=== PATIENT | male | born 1960 | race Caucasian/White ===

== ENCOUNTER 2017-11-28 09:08 | Day surgery (SDC) | payer BC ==
[~2017-11-28 09:08] MED LIST: Lactated Ringers 1,000 ML IV SCH; Lidocaine 1%/Sod Bicarbonate in NS 8.4% 1 ML Syringe IDERM PRN; Sodium Chloride 0.9% 10 ML Syringe FLUSH PRN
--- NOTE | 2017-11-28 09:09 | PCM.PREANE ---
Preanesthetic Assessment - Anesthesia/Transfusion/Family Hx Anesthesia History: Prior Anesthesia Without Reaction Family History of Anesthesia Reaction: No Transfusion History: No Prior Transfusion(s) Intubation History: Unknown - Review of Systems General: No Symptoms (History of ADHD) Pulmonary: No Symptoms (Current day smoker: 0.25 packs/day times 40 years/[facility] with CPAP with sleep.), Cough (just getting over a cold one week ago, with symptoms resolving) Cardiovascular: No Symptoms (Eluting stent placed 03/30/16/ Patient had an appt with drier take off tender in 2016, with unremarkable findings noted per patient.) Gastrointestinal: No Symptoms Neurological: No Symptoms (Obesity) Other: Reports: None, Diabetes (Diet controlled/Patient instructed to take metformin but refuses/AM blood vamtl=007 @ 0950) - Physical Assessment NPO Status Date: 11/27/17 NPO Status Time: 23:00 Pulse: 70 O2 Sat by Pulse Oximetry: 98 Respiratory Rate: 16 Blood Pressure: 160/87 Temperature: 36.6 C Height: 1.7 m Weight: 135 kg ASA Class: 3 Mental Status: Alert & Oriented x3 Airway Class: Mallampati = 3 Dentition: Reports: Normal Dentition, Caries Thyro-Mental Finger Breadths: 3 Mouth Opening Finger Breadths: 3 ROM/Head Extension: Full Lungs: Clear to Auscultation, Normal Respiratory Effort Cardiovascular: Regular Rate, Regular Rhythm, No Murmurs - Lab Values: All lab values reviewed and noted and within acceptable ranges to proceed with scheduled procedure. - Imaging/EKG Impressions: EKG: SR rate= 69, Inferior infarct, old - Allergies Allergies/Adverse Reactions: Allergies Allergy/AdvReac Type Severity Reaction Status Date / Time Penicillins Allergy Cannot Verified 11/27/17 15:20 Remember - Anesthesia Plan Pre-Op Medication Ordered: Other (reglan 10mg IV, 30ml's of bicitra PO, 20mg IV pepcid.) - Acknowledgements Anesthesia Type Planned: General Anesthesia, MAC Pt an Appropriate Candidate for the Planned Anesthesia: Yes Alternatives and Risks of Anesthesia Discussed w Pt/Guardian: Yes Pt/Guardian Understands and Agrees with Anesthesia Plan: Yes PreAnesthesia Questionnaire HEENT History: Reports: Impaired Vision Cardiovascular History: Reports: Hypertension, Stents Respiratory History: Reports: None Gastrointestinal History: Reports: None Genitourinary History: Reports: None HAND HEEL SEAT FITTER History: Reports: None Musculoskeletal History: Reports: None Neurological History: Reports: None Psychiatric History: Reports: ADHD Endocrine/Metabolic History: Reports: None Hematologic History: Reports: None Immunologic History: Reports: None Oncologic (Cancer) History: Reports: None Dermatologic History: Reports: None - Past Surgical History Head Surgeries/Procedures: Reports: None HEENT Surgical History: Reports: Tonsillectomy Cardiovascular Surgical History: Reports: None Respiratory Surgical History: Reports: None GI Surgical History: Reports: None Female Surgical History: Reports: None Male Surgical History: Reports: None Endocrine Surgical History: Reports: None Neurological Surgical History: Reports: None Musculoskeletal Surgical History: Reports: None Oncologic Surgical History: Reports: None Dermatological Surgical History: Reports: None - SUBSTANCE USE Smoking Status *Q: Current Every Day Smoker Recreational Drug Use History: No - HOME MEDS Home Medications: Home Meds Aspirin [Adult Aspirin] 81 mg PO DAILY 11/27/17 [History] Clopidogrel Bisulfate [Plavix] 75 mg PO DAILY 11/27/17 [History] Doxycycline [Vibramycin] 100 mg PO BID 11/27/17 [History] Naproxen Sodium [Aleve] 1 - 2 cap PO BID PRN 11/27/17 [History] atorvaSTATin Calcium [Lipitor] 20 mg PO DAILY 11/27/17 [History] - CURRENT (IN HOUSE) MEDS Current Meds: Current Medications Lactated Ringer's (Ringers, Lactated) 1,000 mls @ 125 mls/hr IV ASDIRECTED JUSTIN Lidocaine/Sodium Bicarbonate (Buffered Lidocaine 1% In Ns 8.4%) 0.25 ml IDERM ONETIME PRN PRN Reason: Prior to IV Start Sodium Chloride (Saline Flush) 10 ml FLUSH ASDIRECTED PRN PRN Reason: Keep Vein Open
[2017-11-28] MEDS ORDERED: Famotidine 20 MG/2 ML SDV ONE (09:23)
[2017-11-28] MEDS ORDERED: Citric Acid/Sodium Citrate Solution 30 ML Cup ONE (09:27)
[2017-11-28] MEDS ORDERED: ceFAZolin 1 GM Vial ONE (09:27)
[2017-11-28] MEDS ORDERED: Propofol 200 MG/20 ML SDV ONE (09:27)
[2017-11-28] MEDS ORDERED: Ondansetron 4 MG/2 ML SDV ONE ×2 (09:27→13:12)
[2017-11-28] MEDS ORDERED: Lidocaine 1% 6 ML ONE (09:27)
[2017-11-28] MEDS ORDERED: fentaNYL 100 MCG/2 ML SDV ONE (09:27)
[2017-11-28] MEDS ORDERED: Ketorolac 30 MG/ML SDV ONE (09:27)
[2017-11-28] MEDS ORDERED: Metoclopramide 10 MG/2 ML SDV ONE (09:27)
[2017-11-28] MEDS ORDERED: Midazolam 1 MG/ML 2 ML SDV ONE (09:28)
[2017-11-28] MEDS ORDERED: Ketamine 500 mg/10 ML MDV ONE (09:28)
[2017-11-28] MEDS ORDERED: HYDROmorphone 0.5 MG/0.5 ML Syringe ONE (09:29)
[2017-11-28] MEDS ORDERED: Bupivacaine 0.5%/EPINEPHrine 1:200,000 50 ML MDV ONE (10:57)
[2017-11-28] MEDS ORDERED: Succinylcholine/Normal Saline 100 MG/5 ML Syringe ONE (13:06)
[2017-11-28] MEDS ORDERED: Lactated Ringers 1,000 ML ONE ×2 (13:11→13:45)
--- NOTE | 2017-11-28 13:37 | PCM.OPNOTE ---
- General Post-Op/Procedure Note Date of Surgery/Procedure: 11/28/17 Operative Procedure(s): EUA and excision of 5 cm area of indurated skin Pre Op Diagnosis: possible jeanine rectal abscess Post-Op Diagnosis: inflamed skin at the base of the scrotum Anesthesia Technique: General ET Tube Primary Surgeon: Osito Ackerman EBL in mLs: 4 Complications: None Condition: Good
[2017-11-28] MEDS ORDERED: Albuterol/Ipratropium 3.0-0.5 MG/3 ML Neb Soln NEB PRN (14:10)
--- NOTE | 2017-11-28 14:14 | PCM.POSTAN ---
POST ANESTHESIA ASSESSMENT - MENTAL STATUS Mental Status: Alert, Oriented - VITAL SIGNS Pulse Rate: 92 SaO2: 93 Resp Rate: 22 Blood Pressure: 167/74 Temperature: 97.4 F - RESPIRATORY Respiratory Status: Airway Patent, O2 Saturation Stable, Supplemental Oxygen ( Copious a/w secretions) - CARDIOVASCULAR CV Status: Pulse Rate WNL, Blood Pressure Stable - GASTROINTESTINAL GI Status: No Symptoms - PAIN Pain Score: 0 - POST OP HYDRATION Hydration Status: Adequate & Stable - OBSERVATIONS Free Text/Narrative:: Frequent coughing, respiratory exercises and deep breathing instructed
--- NOTE | 2017-11-28 14:36 | PCM48HPAN ---
Post Anesthesia Note - EVALUATION WITHIN 48HRS OF ANESTHETIC Vital Signs in Normal Range: Yes Patient Participated in Evaluation: Yes Respiratory Function Stable: Yes Airway Patent: Yes Hydration Status Stable: Yes Pain Control Satisfactory: Yes Nausea and Vomiting Control Satisfactory: Yes Mental Status Recovered: Yes Pulse Rate: 92 Resp Rate: 22 Temperature: 97.4 F Blood Pressure: 167/74
--- NOTE | 2017-11-29 07:13 | OR ---
DATE OF OPERATION: 11/28/2017 SURGEON: Osito Ackerman MD PREOPERATIVE DIAGNOSIS: Possible perirectal abscess. POSTOPERATIVE DIAGNOSIS: Possible perirectal abscess. OPERATION PERFORMED: Examination under anesthesia and excision of inflamed tissue at the base of the scrotum with primary closure. ANESTHESIA: Done under general anesthetic. DESCRIPTION OF PROCEDURE: The patient was taken to the operating room, placed in a supine position, given a general anesthetic and intubated. The patient was placed in lithotomy position. Perianal area was prepped. Scrotum was taped to the abdomen. The area was then draped in a sterile fashion. Examination was then performed first by inspection of the perianal area and then palpation, that did not show any induration. Rectal exam was done and, again, no induration or swelling were identified. Anal speculum was inserted and all quadrants of the anoderm were examined, and they were normal. At the base of the scrotum was some inflamed tissue in the raphe, and this was then excised and sent to pathology. The resulting defect was then sutured in layers with a running 4-0 Vicryl suture after electrocautery was used to secure hemostasis, and then subdermal 4-0 Dexon suture used to approximate the skin. This controlled the bleeding. Sterile dressing placed. The patient tolerated the procedure and sent to recovery room in a stable condition, and will be followed up in the clinic. ESTIMATED BLOOD LOSS: MMODAL /[id number]
--- NOTE | 2017-11-29 07:17 | OR ---
DATE OF OPERATION: 11/28/2017 SURGEON: Osito Akcerman MD ADDENDUM: ESTIMATED BLOOD LOSS: 5 mL. The amount of tissue excised in the base of scrotum measured, linear direction, 5 cm. MMODAL /[id number]
--- NOTE | 2017-12-13 14:24 | OR ---
DATE OF OPERATION: 11/28/2017 SURGEON: Osito Ackerman MD ADDENDUM: The size of the lesion that was excised was 4 cm and was closed in a layered closure. MMODAL /[id number]
== END 2017-11-28 15:30 | disposition home or self-care (01) ==
LOC: JD.SDS 09:08
PROVIDERS: ATTEND Surgery
DX: N49.2 Inflammatory disorders of scrotum (principal); L92.3 Foreign body granuloma of the skin and subcutaneous tissue; I10 Essential (primary) hypertension; E11.9 Type 2 diabetes mellitus without complications; F17.210 Nicotine dependence, cigarettes, uncomplicated; E66.9 Obesity, unspecified; Z68.42 Body mass index [BMI] 45.0-49.9, adult; F90.9 Attention-deficit hyperactivity disorder, unspecified type; Z79.82 Long term (current) use of aspirin; Z79.899 Other long term (current) drug therapy; Z88.0 Allergy status to penicillin
CPT/HCPCS: 11426; 12042; 82962; 93005; A9270; J0330; J0690; J1170; J2250; J2405; J2704; J2765; J3010; J3490; J7120; 00920; J1885; J2001